=== PATIENT | male | born 1970 | race Caucasian/White ===

== ENCOUNTER 2022-01-01 10:22 | Day surgery (SDC) | payer MEDICAID ==
[2021-12-30 13:15] LABS: COVID AG,FIA SOURCE NASOPHARYNGEAL
[~2022-01-01] VITALS: Ht 170.2 cm; Wt 81.8 kg
[~2022-01-01 10:22] MED LIST: FAMO20TA8 PO; SODIUM CHLORIDE 0.9% 1,000 ML ONE
[2022-01-01] MEDS ORDERED: LIDOCAINE/PF 2% 5 ML VIAL IM ONE (12:00)
[2022-01-01] MEDS ORDERED: SODIUM CHLORIDE 0.9% 1,000 ML IV ONE (12:00)
[2022-01-01] MEDS ORDERED: PROPOFOL 1% 20 ML VIAL IVP ONE (12:00)
== END 2022-01-01 15:10 | disposition home or self-care (01) ==
LOC: SURGERY 10:22
PROVIDERS: ATTEND Internal Medicine Gastroenterology
DX: K29.50 Unspecified chronic gastritis without bleeding (principal); K44.9 Diaphragmatic hernia without obstruction or gangrene; B96.81 Helicobacter pylori [H. pylori] as the cause of diseases classified elsewhere; K21.9 Gastro-esophageal reflux disease without esophagitis; Z79.899 Other long term (current) drug therapy; Z98.890 Other specified postprocedural states; Z72.89 Other problems related to lifestyle
CPT/HCPCS: 87426; 43239; 88305; 88312; 88313; C9803; C1769; J2704; J3490; J7030